=== PATIENT | male | born 1950 | race Caucasian/White ===

== ENCOUNTER 2020-05-22 07:00 | Emergency (ER) | payer OTHER ==
[2020-05-22 07:45] LABS: Absolute Lymphocytes (CBC) 2.3 K/uL (0.7-4.9); Basophils % 0.3 % (0-1.3); Lymphocytes % 23.1 % (15.3-44.8); MPV 7.9 fL (7.6-11.3); Protime INR 1.06; RBC Red Blood Cell Count 4.46 M/uL (4.33-5.43)
[2020-05-22] MEDS ORDERED: ASPIRIN EC 325 MG TABLET PO ONE (08:02)
[2020-05-22 08:03] LABS: ALT/SGPT 31 U/L (12-78); AST/SGOT 18 U/L (15-37); Albumin 3.9 g/dL (3.4-5.0); Alkaline Phosphatase 60 U/L (45-117); BUN Blood Urea Nitrogen 39 mg/dL (7-18); Bicarbonate 26 mmol/L (21-32); Bilirubin Direct 0.1 mg/dL (0-0.2); Bilirubin Total 0.4 mg/dL (0.2-1.0); Glucose Level 161 mg/dL (74-106); Magnesium 2.2 mg/dL (1.8-2.4); NT PRO-BNP 28 pg/mL (<125); Protein, Total 7.2 g/dL (6.4-8.2); Sodium Level 140 mmol/L (136-145); Troponin (Emerg Dept Use Only) < 0.02 ng/mL (0.0-0.045)
--- NOTE | 2020-05-22 08:31 | RAD REPORT ---
EXAM DESCRIPTION: Samuel Single View05/22/2020 8:07 am CLINICAL HISTORY: Chest pain COMPARISON: none FINDINGS: The lungs appear clear of acute infiltrate. The heart is normal size IMPRESSION: No acute abnormalities displayed
--- NOTE | 2020-05-22 09:05 | ER ---
Nurse's Notes [facility] Name: Joe Barrios Age: 69 yrs Sex: Male : 1950 Arrival Date: 05/22/2020 Time: 07:03 Bed 5 Private MD: Diagnosis: Chest pain, unspecified Presentation: 05/22 07:15 Chief complaint: Patient states: DIZZINESS, DIAPHORESIS AND NAUSEA ON WAKING. bp Coronavirus screen: Proceed with normal triage. Ebola Screen: No symptoms or risks identified at this time. Initial Sepsis Screen: Does the patient meet any 2 criteria? No. Patient's initial sepsis screen is negative. Does the patient have a suspected source of infection? No. Patient's initial sepsis screen is negative. Risk Assessment: Do you want to hurt yourself or someone else? Patient reports no desire to harm self or others. Onset of symptoms was May 22, 2020. 07:15 Method Of Arrival: Ambulatory bp 07:15 Acuity: MELISSA 2 bp Triage Assessment: 07:18 General: Appears in no apparent distress. comfortable, Behavior is cooperative, bp appropriate for age, anxious. Pain: Denies pain. EENT: No deficits noted. Neuro: Reports dizziness, NOW RELIEVED. Cardiovascular: Rhythm is sinus rhythm. Respiratory: No deficits noted. GI: No signs and/or symptoms were reported involving the gastrointestinal system. : No signs and/or symptoms were reported regarding the genitourinary system. Derm: No deficits noted. Musculoskeletal: No deficits noted. Historical: - Allergies: 07:18 No Known Allergies; bp - Home Meds: 07:18 metoprolol tartrate 25 mg Oral tab 1 tab 2 times per day [Active]; Zetia 10 mg Oral tab bp 1 tab once daily [Active]; pravastatin 40 mg oral tab 1 tab once daily [Active]; aspirin 325 mg Oral tab 1 tab once daily [Active]; Plavix 75 mg Oral tab 1 tab once daily [Active]; - PMHx: 07:18 Hypertension; High Cholesterol; CARDIAC STENT; bp - Immunization history:: Adult Immunizations up to date. - Social history:: Smoking status: Patient denies any tobacco usage or history of. Patient/guardian denies using alcohol, street drugs, The patient lives with family. - Family history:: not pertinent. Screenin:19 Abuse screen: Denies threats or abuse. Denies injuries from another. Nutritional bp screening: No deficits noted. Tuberculosis screening: No symptoms or risk factors identified. Fall Risk None identified. Assessment: 07:19 General: SEE TRIAGE NOTE. bp 08:29 Reassessment: ALL CURRENT ORDERS COMPLETED, INITIAL RESULTS UNREMARKABLE. bp 10:09 Reassessment: REPORT TO CLIVE BLANTON AT [facility]. PT TO TRANSFER VIA POV WITH PIV bp IN PLACE, PER MD. Vital Signs: 07:15 BP 136 / 88; Pulse 69; Resp 17; Temp 96.6; Pulse Ox 96% ; Weight 88.45 kg; Height 5 ft. bp 7 in. (170.18 cm); 08:28 BP 116 / 65; Pulse 66; Resp 19; Pulse Ox 100% ; bp 10:09 BP 125 / 81; Pulse 69; Resp 13; Temp 98.6; Pulse Ox 99% ; bp 07:15 Body Mass Index 30.54 (88.45 kg, 170.18 cm) bp ED Course: 07:03 Patient arrived in ED. ag3 07:07 Remy Pruett MD is Attending Physician. ma2 07:10 Kyler Nuno, HARVINDER is Primary Nurse. bp 07:16 Triage completed. bp 07:17 EKG done, by ED staff, reviewed by Remy Pruett MD. dh3 07:18 Arm band placed on. bp 07:19 Patient has correct armband on for positive identification. Bed in low position. Call bp light in reach. Side rails up X2. 07:34 Initial lab(s) drawn, by md, sent to lab. Inserted saline lock: 20 gauge in right dh3 forearm, using aseptic technique. Blood collected. 08:03 XRAY Chest (1 view) In Process Unspecified. EDMS 09:08 attempted transfer to [facility]. bd 09:34 pt accepted in transfer to [facility]. approval given by nolan bhatia. bd 10:09 No provider procedures requiring assistance completed. Patient transferred, IV remains bp in place. Administered Medications: 07:56 Drug: Aspirin Chewable Tablet 324 mg Route: PO; bp 08:28 Follow up: Response: No adverse reaction bp Outcome: 09:04 ER care complete, transfer ordered by . ma2 10:08 Transferred to [facility], Note: BY POV bp 10:08 Condition: stable 10:08 Instructed on the need for transfer. 10:53 Patient left the ED. bp Signatures: Dispatcher [employer] EDMS Judi Cowan Deanna 3 Kyler Nuno RN RN Remy Warner MD MD ne2 Alexandra Garcia 3
--- NOTE | 2020-05-22 09:06 | EDPHYS ---
Physician Documentation [facility] Name: Joe Barrios Age: 69 yrs Sex: Male : 1950 Arrival Date: 05/22/2020 Time: 07:03 Bed 5 Private MD: ED Physician Remy Pruett HPI: 05/22 09:00 This 69 yrs old Male presents to ER via Ambulatory with complaints of ma2 Dizziness, Shoulder Pain. 09:00 Onset: The symptoms/episode began/occurred gradually, 1 hour(s) ago. Associated signs ma2 and symptoms: Pertinent negatives: ataxia, chest pain, confusion, head injury, , seizure, shortness of breath, syncope. Severity of symptoms: At their worst the symptoms were moderate in the emergency department the symptoms are unchanged. The patient has not experienced similar symptoms in the past. Historical: - Allergies: 07:18 No Known Allergies; bp - Home Meds: 07:18 metoprolol tartrate 25 mg Oral tab 1 tab 2 times per day [Active]; Zetia 10 mg Oral tab bp 1 tab once daily [Active]; pravastatin 40 mg oral tab 1 tab once daily [Active]; aspirin 325 mg Oral tab 1 tab once daily [Active]; Plavix 75 mg Oral tab 1 tab once daily [Active]; - PMHx: 07:18 Hypertension; High Cholesterol; CARDIAC STENT; bp - Immunization history:: Adult Immunizations up to date. - Social history:: Smoking status: Patient denies any tobacco usage or history of. Patient/guardian denies using alcohol, street drugs, The patient lives with family. - Family history:: not pertinent. ROS: 09:00 Constitutional: Negative for fever, chills, and weight loss. ma2 09:00 All other systems are negative. Exam: 09:00 Constitutional: This is a well developed, well nourished patient who is awake, alert, ma2 and in no acute distress. Head/Face: Normocephalic, atraumatic. Eyes: Pupils equal round and reactive to light, extra-ocular motions intact. Lids and lashes normal. Conjunctiva and sclera are non-icteric and not injected. Cornea within normal limits. Periorbital areas with no swelling, redness, or edema. ENT: Nares patent. No nasal discharge, no septal abnormalities noted. Tympanic membranes are normal and external auditory canals are clear. Oropharynx with no redness, swelling, or masses, exudates, or evidence of obstruction, uvula midline. Mucous membranes moist. Neck: Trachea midline, no thyromegaly or masses palpated, and no cervical lymphadenopathy. Supple, full range of motion without nuchal rigidity, or vertebral point tenderness. No Meningismus. Chest/axilla: Normal chest wall appearance and motion. Nontender with no deformity. No lesions are appreciated. Cardiovascular: Regular rate and rhythm with a normal S1 and S2. No gallops, murmurs, or rubs. Normal PMI, no JVD. No pulse deficits. Respiratory: Lungs have equal breath sounds bilaterally, clear to auscultation and percussion. No rales, rhonchi or wheezes noted. No increased work of breathing, no retractions or nasal flaring. Abdomen/GI: Soft, non-tender, with normal bowel sounds. No distension or tympany. No guarding or rebound. No evidence of tenderness throughout. Back: No spinal tenderness. No costovertebral tenderness. Full range of motion. Skin: Warm, dry with normal turgor. Normal color with no rashes, no lesions, and no evidence of cellulitis. MS/ Extremity: Pulses equal, no cyanosis. Neurovascular intact. Full, normal range of motion. Neuro: Awake and alert, GCS 15, oriented to person, place, time, and situation. Cranial nerves II-XII grossly intact. Motor strength 5/5 in all extremities. Sensory grossly intact. Cerebellar exam normal. Normal gait. Vital Signs: 07:15 BP 136 / 88; Pulse 69; Resp 17; Temp 96.6; Pulse Ox 96% ; Weight 88.45 kg; Height 5 ft. bp 7 in. (170.18 cm); 08:28 BP 116 / 65; Pulse 66; Resp 19; Pulse Ox 100% ; bp 10:09 BP 125 / 81; Pulse 69; Resp 13; Temp 98.6; Pulse Ox 99% ; bp 07:15 Body Mass Index 30.54 (88.45 kg, 170.18 cm) bp MDM: 07:07 Patient medically screened. ma2 09:00 Differential diagnosis: hypovolemia, near-syncope, chest pain, acs. Data reviewed: ma2 vital signs, nurses notes. Counseling: I had a detailed discussion with the patient and/or guardian regarding: the historical points, exam findings, and any diagnostic results supporting the discharge/admit diagnosis, the presence of at least one elevated blood pressure reading (>120/80) during this emergency department visit, lab results. Response to treatment: There is no appreciated change of the patient's symptoms at this time. ED course: chest pain offered admission [facility] is his biomedical field service engineer gideon davis . 09:24 ED course: accepted by dr. morse. [facility] 09:27 ED course: i offered ambulance transfer, patient is accepted, patient want his business [facility] partner to drive him there i explained risk of having mi on the road which is around 1 hour away. he understand risk and declined ambulance transfer against medical advise. . 05/22 07:20 Order name: Basic Metabolic Panel; Complete Time: 08:37 bp 05/22 07:20 Order name: CBC with Diff; Complete Time: 08:37 bp 05/22 07:20 Order name: LFT's; Complete Time: 08:37 bp 05/22 07:20 Order name: Magnesium; Complete Time: 08:37 bp 05/22 07:20 Order name: NT PRO-BNP; Complete Time: 08:37 bp 05/22 07:20 Order name: PT-INR; Complete Time: 08:37 bp 05/22 07:20 Order name: Troponin (emerg Dept Use Only); Complete Time: 08:37 bp 05/22 07:20 Order name: XRAY Chest (1 view); Complete Time: 08:37 bp 05/22 07:20 Order name: EKG; Complete Time: 07:21 bp 05/22 07:20 Order name: Cardiac monitoring; Complete Time: 07:20 bp 05/22 07:20 Order name: EKG - Nurse/Tech; Complete Time: 07:20 bp 05/22 07:20 Order name: IV Saline Lock; Complete Time: 07:38 bp 05/22 07:20 Order name: Labs collected and sent; Complete Time: 07:38 bp 05/22 07:20 Order name: O2 Per Protocol; Complete Time: 07:20 bp 05/22 07:20 Order name: O2 Sat Monitoring; Complete Time: 07:20 bp Administered Medications: 07:56 Drug: Aspirin Chewable Tablet 324 mg Route: PO; bp 08:28 Follow up: Response: No adverse reaction bp Disposition: 05/22/20 09:04 Transfer ordered to [facility]. Diagnosis is Chest pain, unspecified. - Reason for transfer: Higher level of care. - Accepting physician is [facility]. - Condition is Stable. - Problem is new. - Symptoms are unchanged. Signatures: Dispatcher [employer] Kyler Henley RN RN Remy Warner MD MD ma2 Corrections: (The following items were deleted from the chart) 10:53 09:04 05/22/2020 09:04 Transfer ordered to [facility]. Diagnosis is Chest pain, bp unspecified. Reason for transfer: Higher level of care. Accepting physician is [facility]. Condition is Stable. Problem is new. Symptoms are unchanged. ma2
[2020-05-22 11:11] VITALS: BP 125/81; TEMP 98.6; O2SAT 99
== END 2020-05-22 10:53 | disposition short-term general hospital (02) ==
LOC: ER 07:00
DX: R07.9 Chest pain, unspecified (principal); I10 Essential (primary) hypertension; E78.00 Pure hypercholesterolemia, unspecified; Z79.01 Long term (current) use of anticoagulants; Z95.818 Presence of other cardiac implants and grafts
CPT/HCPCS: 36415; 71045; 80048; 80076; 83735; 83880; 84484; 85025; 85610; 93005; 99285